=== PATIENT | female | born 1990 | race Caucasian/White ===

== ENCOUNTER 2020-05-09 20:26 | Emergency (ER) | payer MEDICAID ==
[2020-05-09] MEDS ORDERED: DEXAMETHASONE 10 MG/ML VIAL PO STA (21:03)
[2020-05-09] MEDS ORDERED: CHERRY SYRUP 10 ML UDC PO ONE (21:03)
--- NOTE | 2020-05-09 21:05 | ED Physician Documentation ---
History of Present Illness - Stated complaint Stated Complaint: ALLERGIC REACTION - Chief complaint Chief Complaint: Resp - History obtained from History obtained from: Patient - History of Present Illness Timing: Prior to arrival - Additonal information Additional information: 29-year-old female presents to the emergency department for concern that she may be having an allergic reaction to food that she recently ate. 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 Around 5 PM this evening she ate some Giovani and Armenian food. Shortly after eating she began to feel like she was having difficulty swallowing and felt short of breath. She reports that she took 4 Benadryl tablets and that has resolved to some of the dyspnea and swallowing problems but she presents to the emergency department for further evaluation. She also reports vomiting once. In the room she is alert well-appearing and does not appear to have any distress or dyspnea. Her saturations are 100%. Her heart rate is in the 80s and sinus rhythm. She is not vomiting and has no belly pain. She denies chest pain. 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 She has received epinephrine in the past but does not carry an EpiPen with her. This presentation feels different to her than previous anaphylaxis. Review of Systems Constitutional: denies: Fever, Chills Cardiac: denies: Chest pain / pressure, Palpitations, Pedal edema, Calf pain Respiratory: reports: Dyspnea. denies: Cough, Hemoptysis, Wheezing GI: reports: Vomiting. denies: Abdominal Pain, Abdominal Swelling : denies: Dysuria, Frequency Skin: denies: Rash, Lesions PD PAST MEDICAL HISTORY - Present Medications Home Medications: Ambulatory Orders Medication Instructions Recorded Confirmed EPINEPHrine [Epinephrine] 0.3 mg IJ ONCE PRN #1 auto.injct 05/09/20 Famotidine [Pepcid] 40 mg PO BID #6 tablet 05/09/20 diphenhydrAMINE [Benadryl] 50 mg PO BID #6 capsule 05/09/20 - Allergies Allergies/Adverse Reactions: Allergies Allergy/AdvReac Type Severity Reaction Status Date / Time fish derived Allergy Respiratory Verified 05/09/20 21:20 PD ED PE NORMAL - General General: Alert and oriented X 3, No acute distress, Well developed/nourished - HEENT HEENT: PERRL, EOMI - Neck Neck: Supple, no meningeal sign, No adenopathy, Other (Normal phonation. Normal swallow. 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 Eye Opening: Spontaneous Motor: Obeys Commands Verbal: Oriented GCS Score: 15 - Psych Psych: Normal mood Results - Vitals Vitals: Vital Signs - 24 hr 05/09/20 05/09/20 05/09/20 20:30 20:38 22:32 Temperature 3.2 C L Heart Rate 107 H 98 81 Respiratory 18 20 Rate Blood Pressure 137/88 H 113/68 O2 Saturation 97 99 97 05/09/20 22:55 Temperature Heart Rate 81 Respiratory 20 Rate Blood Pressure 130/67 O2 Saturation 97 Oxygen O2 Source Room air - Labs Labs: Laboratory Tests 05/09/20 21:50 Urine Color YELLOW Urine Clarity CLEAR Urine pH 5.5 Ur Specific [place] >=1.030 H Urine Protein NEGATIVE Urine Glucose (UA) NEGATIVE Urine Ketones NEGATIVE Urine Occult Blood MODERATE H Urine Nitrite NEGATIVE Urine Bilirubin NEGATIVE Urine Urobilinogen 0.2 (NORMAL) Ur Leukocyte Esterase NEGATIVE Urine RBC 0-5 Urine WBC 0-3 Ur Squamous Epith Cells FEW Squamous Urine Bacteria Few Ur Microscopic Review INDICATED Urine Culture Comments NOT INDICATED Urine HCG, Qual NEGATIVE PD MEDICAL DECISION MAKING - ED course Complexity details: reviewed results, re-evaluated patient, d/w patient ED course: 29-year-old female presents emergency department with chief complaint that she may be having allergic reaction to fish. She is unsure if she ate fish products but shortly after eating this afternoon she began to experience some mild dyspnea and difficulty swallowing after eating bolivian and giovani. She did report to me that she took 4 adult Benadryl prior to arrival to the emergency department which is significantly improved her symptoms. - At the time of exam in the emergency department she appears very well. Her vital signs are normal. She has no tachycardia. She does not appear to be having anaphylactic shock. No tongue or lip swelling she is phonating and swallowing normally. - Patient will be given 10 mg of Decadron here in the emergency department. At this time I do not feel that she needs emergent intervention with epinephrine. She will continue to be monitored for a few hours to ensure that her symptoms resolve and remained stable - On discharge I have prescribed an epinephrine pen for her to carry with her. I have also recommended 3 days of Benadryl as well as Pepcid. - Patient will be signed out to my colleague Dr. Thomas to continue the observation period of 3-4 hours. However if she remains stable she may be discharged home Departure - Departure Clinical Impression: Allergy, food Allergic reaction Qualifiers: Encounter type: initial encounter Qualified Code(s): T78.40XA - Allergy, unspecified, initial encounter Condition: Stable Instructions: ED Allergic Reaction General Other Follow-Up: MAGDIEL MENESES MD [Primary Care Provider] - Prescriptions: diphenhydrAMINE [Benadryl] 50 mg PO BID #6 capsule EPINEPHrine [Epinephrine] 0.3 mg IJ ONCE PRN #1 auto.injct PRN Reason: Anaphylaxis Famotidine [Pepcid] 40 mg PO BID #6 tablet Comments: Rama I have given you a one-time dose of steroids here in the emergency department. While at home for the next 2 to 3 days you can continue to take Benadryl 50 mg twice a day as well as a stomach antacid such as Pepcid. I have prescribed the EpiPen and you should fill it and carry it with you. At any point you begin to have tongue or lip swelling. Cannot swallow speak or breathe normally please use the epinephrine pen. Please schedule follow-up with your primary care doctor to discuss this emergency department visit
[2020-05-09 22:55] LABS: BILIRUBIN,URINE NEGATIVE (NEGATIVE); GLUCOSE, URINE (UA) NEGATIVE (NEGATIVE); KETONES,URINE (UA) NEGATIVE (NEGATIVE); LEUKOCYTE ESTERASE, URINE NEGATIVE (NEGATIVE); NITRITE,URINE NEGATIVE (NEGATIVE); OCCULT BLOOD,URINE MODERATE (NEGATIVE); PH,URINE 5.5 PH (5.0-7.5); PROTEIN,URINE NEGATIVE (NEGATIVE); UROBILINOGEN,URINE 0.2 (NORMAL) E.U./dL (NORMAL)
[2020-05-09 22:59] LABS: CLARITY,URINE CLEAR (CLEAR); HCG UR QUAL NEGATIVE
[2020-05-09 23:00] LABS: BACTERIA,URINE Few /HPF (None Seen); RBC,URINE 0-5 /HPF (0-5); SQUAMOUS EPITHELIAL CELL,UR FEW Squamous (<= Few)
[2020-05-09 23:53] VITALS: BP 130/73
--- NOTE | 2020-05-10 09:09 | ED Physician Documentation ---
ED Addendum - Addendum Addendum: 05/10/20 09:08 Reevaluated after period of observation in ED (received sign out from BRANDI Schwarz); patient is asleep and in NAD, easily awakens to voice, reports resolution of symptoms. Her oropharynx is without edema, vital signs stable and patient is comfortable with d/c home.
== END 2020-05-09 23:53 | disposition home or self-care (01) ==
LOC: ED 20:26
DX: T78.1XXA Other adverse food reactions, not elsewhere classified, initial encounter (principal); Z91.013 Allergy to seafood; R06.00 Dyspnea, unspecified; R13.10 Dysphagia, unspecified; R11.11 Vomiting without nausea; X58.XXXA Exposure to other specified factors, initial encounter
CPT/HCPCS: 81001; 81025; 99284; A9270; 81003; 87086